=== PATIENT | female | born 1980 | race Caucasian/White ===

== ENCOUNTER 2022-11-03 15:00 | Emergency (ER) | payer MEDICAID, SELFPAY ==
[2022-11-03 15:01] VITALS: BP 146/85; PULSE 118; RESP 18; TEMP 36.8; O2SAT 96
--- NOTE | 2022-11-03 15:41 | ED_ITS ---
HPI - Back Pain/Injury General: Chief Complaint: Back Pain/Injury Stated Complaint: upper back pain Time Seen by Provider: 11/03/22 15:21 Source: patient Mode of arrival: ambulatory Limitations: no limitations History of Present Illness: Patient is a nice 42-year-old female presents to ED today with a complaint of pain to her left posterior chest/back that began a few days ago gradually. Patient states pain seems to be worse with movement and coughing. She states she chronically has a baseline smoker's cough and wonders if she pulled or strained something. She does not complain of any pain in her chest or worsening dyspnea apart from her chronic shortness of breath secondary to smoking. No hemoptysis. No recent surgery, prolonged periods of inactivity, hormonal therapy, or other risk factors for PE. MD elicited complaint: back pain Onset (ago): day(s) Timing: constant Severity: moderate Similar Symptoms Previously: No Radiation: none Exacerbating factors: movement and other (coughing) Relieving factors: none Associated symptoms: Deny abdominal pain, chills, dysuria, fatigue, fever(s), hematuria, nausea, syncope or vomiting Work related injury: No Review of Systems Const: Denies: fever(s), chills, body aches, fatigue or malaise Card: Reports: dyspnea on exertion (chronic with her smoking-at baseline); Denies: chest pain, palpitations, irregular heart rhythm, edema, swelling of feet/ankles, lightheadedness, syncope, pre-syncope, orthopnea, leg pain with exertion or acrocyanosis Resp: Reports: dyspnea (chronic due to smoking-at baseline), non-productive cough and pain on inspiration; Denies: productive cough, wheezing, stridor, change in phlegm color, hemoptysis or chest congestion GI: Denies: abdominal pain, nausea, vomiting or diarrhea : Denies: flank pain, dysuria or hematuria Musc: Reports: back pain; Denies: neck pain, extremity pain or joint pain Skin/Breast: Denies: rash Neuro: Denies: headache(s), numbness in extremities, weakness in extremities, sensory changes or dizziness Physical Exam Const: COMMON NORMALS: no acute distress, average body habitus, patient oriented x3, no limitations, healthy appearing, alert and well nourished GENERAL APPEARANCE: cooperative ORIENTATION/CONSCIOUSNESS: Yes awake, Yes oriented to person, Yes oriented to place and Yes oriented to time HENMT: COMMON NORMALS: normocephalic and atraumatic HEAD & SCALP: normal to inspection, normocephalic and atraumatic Chest: COMMONS NORMALS: normal inspection of the chest and normal palpation of entire chest wall Resp: COMMON NORMALS: normal respiratory effort and clear to auscultation bilaterally AUSCULTATION: clear to auscultation bilaterally Cardio: COMMON NORMALS: regular rate and regular rhythm RATE: regular rate RHYTHM: regular rhythm GI: COMMON NORMALS: Normal to inspection, nondistended, normoactive bowel sounds present, Soft to palpation, non-tender and no masses PALPATION: Yes Soft to palpation : COMMON NORMALS: Yes no CVA tenderness BLADDER/KIDNEY EXAM: Yes no CVA tenderness Back/Pelvis: COMMON NORMALS: no CVA tenderness, thoracic and lumbar spine normal to inspection, no thoracic nor lumbar tenderness and thoraco-lumbar ROM normal THORACIC SPINE/UPPER BACK: No thoracic spinal tenderness, Yes paraspinal muscle tenderness and No paraspinal muscle spasm LUMBAR SPINE/LOWER BACK: No lumbar spinal tenderness PELVIS: Yes buttocks normal SACROILIAC JOINTS: Yes SI joints normal SACRUM: no tenderness COCCYX: no tenderness BACK IMAGE (FEMALE): 1. TTP; palpation directly reproduces patient's pain Extremity: COMMON NORMALS: normal to inspection and full ROM GENERAL: Yes normal exam except as noted Neuro: JOY COMA SCALE: document GCS findings [place] coma scale eye op ening: Spontaneous Joy coma scale verbal response: Orientated [place] coma scale motor response: Obey commands Joy coma scale total score: 15 COMMON NORMALS: patient oriented x3, moves all extremities, no focal motor deficits and no sensory deficits noted SENSORIUM/ORIENTATION: Yes alert, Yes oriented to person, Yes oriented to place and Yes oriented to time Skin: COMMON NORMALS: no rashes or lesions noted GENERAL SKIN EXAM: no rashes or lesions noted Course Vital Signs: Vital signs: Vital Signs Temperature 98.3 F 11/03/22 15:01 Pulse Rate 86 11/03/22 15:55 Respiratory Rate 16 11/03/22 15:55 Blood Pressure 113/75 11/03/22 15:55 Pulse Oximetry 96 11/03/22 15:55 Oxygen Delivery Me thod 11/03/22 15:55 MDM - Back Pain/Injury Medical Decision Making Back pain is easily reproducible with palpation and movement. I feel patient's pain most likely is musculoskeletal. She does not have any urinary complaints to make me think this could be a pyelonephritis. Her vital signs are stable. CXR is normal. This time I would recommend NSAIDs and muscle relaxers as well as heat. Recommend follow-up with her PCP in 1 to 2 weeks for reevaluation if symptoms do not improve. Return to ED precautions given. Labs Radiology Impressions Chest X-Ray 11/03/22 15:45 IMPRESSION: No acute findings. Discharge Plan Discharge Patient Disposition: Home Clinical Impression: Strain of thoracic back region Condition: Stable Prescriptions: New cyclobenzaprine 10 mg tablet 10 mg PO TID Qty: 14 0RF diclofenac sodium 50 mg tablet,delayed release (DR/EC) 50 mg PO Q12H PRN (Reason: pain) Qty: 20 0RF Discharge Orders: Discharge ED (Routine); Ordered 11/03/22 Ordered By: Jessica Hernandez Referrals: Pilo Goff MD [Primary Care Provider] - Coding Level of Care Code ED Cyber Security Manager for Chg Fwd Exam Comprehensive
--- NOTE | 2022-11-03 15:45 | XRR_ITS ---
PROCEDURE INFORMATION: Exam: XR Chest Exam date and time: 11/03/2022 4:14 PM Age: 42 years old Clinical indication: Angina pectoris and left-sided; Patient HX: Mid back pain on the left side; Additional info: L back/chest pain TECHNIQUE: Imaging protocol: Radiologic exam of the chest. Views: 1 view. COMPARISON: No relevant prior studies available. FINDINGS: Lungs: Unremarkable. No consolidation. Pleural spaces: Unremarkable. No pleural effusion. No pneumothorax. Heart/Mediastinum: Unremarkable. No cardiomegaly. Bones/joints: Unremarkable. XR/XR chest 1V portable [id number] IMPRESSION: No acute findings.
[2022-11-03 15:55] VITALS: BP 113/75; PULSE 86; RESP 16; O2SAT 96
== END 2022-11-03 16:38 | disposition home or self-care (01) ==
PROVIDERS: Emergency Provider Physician Assistant; PCP Family Medicine
DX: S29.012A Strain of muscle and tendon of back wall of thorax, initial encounter (principal); X58.XXXA Exposure to other specified factors, initial encounter
CPT/HCPCS: 71045; 99283

== ENCOUNTER 2023-01-01 21:54 | Emergency (ER) | payer MEDICAID, SELFPAY ==
--- NOTE | 2023-01-01 21:55 | XRR_ITS ---
PROCEDURE INFORMATION: Exam: XR Chest Exam date and time: 01/01/2023 10:10 PM Age: 42 years old Clinical indication: Cough and shortness of breath; Additional info: SOB TECHNIQUE: Imaging protocol: Radiologic exam of the chest. Views: 1 view. COMPARISON: CR XR chest 1V portable [id number] 11/03/2022 4:14 PM FINDINGS: Lungs: Unremarkable. No consolidation. Pleural spaces: Unremarkable. No pleural effusion. No pneumothorax. Heart/Mediastinum: Unremarkable. No cardiomegaly. Bones/joints: Unremarkable. XR/XR chest 1V portable [id number] IMPRESSION: No acute findings.
[2023-01-01 22:11] VITALS: BP 152/98; PULSE 104; RESP 22; TEMP 36.6; O2SAT 97; BMI 24.7
--- NOTE | 2023-01-01 22:22 | ED_ITS ---
HPI - COVID General: Chief Complaint: COVID symptoms Stated Complaint: covid positive/symptomatic Time Seen by Provider: 01/01/23 22:19 Source: patient Mode of arrival: ambulatory Limitations: no limitations History of Present Illness: 42-year-old female states that she was diagnosed with COVID last Thursday states that since then she had cough congestion all the body aches she states she did finish Paxil but today states she still having cough along with just feeling ill she is in no distress here pulse ox 97% she denies any chest pains denies any vomiting or diarrhea. She denies any worsening improving factors. COVID 19 common symptoms: positive chills, non-productive cough and body aches; negative headache(s), throat pain, nausea, vomiting or diarrhea COVID 19 other sytmptoms: negative chest pain COVID Results: No Data to Display Review of Systems Const: Reports: chills and body aches Eyes: Denies: blurry vision or eye discomfort ENMT: Denies: throat pain or dental pain Card: Denies: chest pain Resp: Reports: non-productive cough GI: Denies: abdominal pain, nausea, vomiting or diarrhea : Denies: dysuria Musc: Denies: neck pain or back pain Skin/Breast: Denies: rash Neuro: Denies: headache(s) Psych: Denies: depression Jose/Lymph: Denies: easy bruising All/Imm: Denies: urticaria PFSH ED PFSH: Medical History No pertinent past medical history Social History (Updated 01/01/23 @ 22:22 by Ricky Zuluaga MD) Smoking and tobacco status: current every day smoker Physical Exam Const: COMMON NORMALS: no acute distress, patient oriented x3 and healthy appearing HENMT: COMMON NORMALS: normocephalic and atraumatic HEAD & SCALP: normocephalic and atraumatic Eye: COMMON NORMALS: Equal, round and reactive pupils present and EOMs intact bilaterally PUPIL: Yes Equal, round and reactive pupils present Neck/C-Spine: COMMON NORMALS: full ROM and supple Chest: COMMONS NORMALS: normal inspection of the chest and normal palpation of entire chest wall Resp: COMMON NORMALS: normal respiratory effort, No retractions, No use of accessory muscles and clear to auscultation bilaterally AUSCULTATION: clear to auscultation bilaterally Cardio: COMMON NORMALS: regular rate, regular rhythm and No murmurs present (Cardio) RATE: regular rate RHYTHM: regular rhythm GI: COMMON NORMALS: Normal to inspection, nondistended, normoactive bowel sounds present, Soft to palpation, non-tender and no masses PALPATION: Yes Soft to palpation Extremity: COMMON NORMALS: normal to inspection and full ROM Neuro: COMMON NORMALS: patient oriented x3, moves all extremities and no focal motor deficits Psych: COMMON NORMALS: mental status grossly normal, Normal thought process present and cooperative THOUGHT PROCESS: Normal thought process present Skin: COMMON NORMALS: no rashes or lesions noted and no wounds GENERAL SKIN EXAM: no rashes or lesions noted Course Vital Signs: Vital signs: Vital Signs Temperature 97.9 F 01/01/23 22:11 Pulse Rate 104 H 01/01/23 22:11 Respiratory Rate 22 H 01/01/23 22:11 Blood Pressure 152/98 01/01/23 22:11 Pulse Oximetry 97 01/01/23 22:11 Oxygen Delivery Me thod 01/01/23 22:11 [facility] - COVID Medical Decision Making Patient presents here with COVID she has had some cough body aches she is well- appearing here in no distress pulse ox is normal she has no signs of a pulmonary embolism she did she give her Decadron along with albuterol she is stable for discharge she is to follow-up with PCP and return if worsening. Lab Data No Data to Display Discharge Plan Discharge Patient Disposition: Home Clinical Impression: COVID-19 Prescriptions: New albuterol sulfate 90 mcg/actuation HFA aerosol inhaler 2 inh INHALATION Q6H PRN (Reason: shortness of breath or wheezing) Qty: 8 0RF No Action cyclobenzaprine 10 mg tablet 10 mg PO TID Qty: 14 0RF diclofenac sodium 50 mg tablet,delayed release (DR/EC) 50 mg PO Q12H PRN (Reason: pain) Qty: 20 0RF Discharge Orders: Discharge ED (Routine); Ordered 01/01/23 Ordered By: Ricky Zuluaga Referrals: Pilo Goff MD [Primary Care Provider] - 1-3 days Discharge Diet: Advance as tolerated Discharge Activity: Resume usual activity Patient Instructions: COVID-19 (Coronavirus Disease 2019) (ED) Stand Alone Forms: Work/School Release Coding Level of Care Code ED Oxygen Equipment Aide for Kerwin Gray
[2023-01-01] MEDS: albuterol 8 gm MDI 2 PUFF INHALATION (22:50)
[2023-01-01 22:52] VITALS: PULSE 104; RESP 21; O2SAT 99
[2023-01-01 23:05] VITALS: O2SAT 97
[2023-01-01] MEDS: dexamethasone 10 mg/mL INJ IM (23:05)
[2023-01-01 23:06] VITALS: PULSE 89; RESP 20; O2SAT 98
== END 2023-01-01 23:07 | disposition home or self-care (01) ==
PROVIDERS: Emergency Provider Emergency Medicine; PCP Family Medicine
DX: U07.1 COVID-19 (principal); F17.210 Nicotine dependence, cigarettes, uncomplicated
CPT/HCPCS: 71045; 94640; 96372; 99283; J1100; J3535

== ENCOUNTER 2023-09-24 08:29 | Emergency (ER) | payer MEDICAID, SELFPAY ==
[2023-09-24 08:41] VITALS: BP 153/108; PULSE 105; RESP 15; TEMP 36.6; O2SAT 96; BMI 27.4
--- NOTE | 2023-09-24 09:21 | ED_ITS ---
HPI - Eye Problem General: Chief complaint: Eye Problems Stated complaint: eye injury Time Seen by Provider: 09/24/23 08:30 Source: patient Mode of arrival: ambulatory History of Present Illness: 43-year-old female presents emergency ro om accidentally was hit in the right eye. She has some blood in the sclera also has swelling medially where she was struck she does not have any vision changes. She has developed some photophobia unsure of her last tetanus. chief complaint: eye pain and eye injury Onset (ago): minute(s) Location: right eye Eye Symptoms: redness, pain and photophobia Place: home Mechanism: direct trauma Associated symptoms: Denies cough, numbness, rhinorrhea, short of breath or weakness PFSH ED PFSH: Medical History No pertinent past medical history Social History Smoking and tobacco/nicotine status: current every day tobacco/nicotine user Female Reproductive History: Date of last menstrual period: 09/18/23 Physical Exam Narrative: EXAM NARRATIVE: Exam of the right eye there is subjectively hemorrhage. No hyphema. There appears to be a laceration of the sclera and medial portion of the right eye there is no drainage or active bleeding from this. Pupils equal and reactive. Patient has moderate photophobia of the right eye. Snellen chart testing vision 20/50 in the right eye 20/25 in the left eye Course Vital Signs: Vital signs: Vital Signs Temperature 97.8 F 09/24/23 08:41 Pulse Rate 105 H 09/24/23 08:41 Respiratory Rate 15 09/24/23 08:41 Blood Pressure 153/108 09/24/23 08:41 Pulse Oximetry 96 09/24/23 08:41 Oxygen Delivery Me thod Room Air 09/24/23 08:41 MDM - Eye Problem Medical Decision Making Update tetanus. Discharge to ophthalmology clinic. [facility] ophthalmology clinic is covering call today contacted them and they will see the patient in the office today at 11:00. Medical Records I reviewed the patient's medical records. Lab Data I reviewed the patient's lab results. No radiology studies performed this visit Discharge Plan Discharge Patient Disposition: Home Clinical Impression: Subconjunctival hemorrhage, Scleral laceration of right eye Condition: Stable Prescriptions: No Action prednisone 20 mg tablet 60 mg PO DAILY 5 Days Qty: 15 0RF diphenhydramine HCl [Benadryl Allergy] 25 mg tablet 50 mg PO TID PRN (Reason: allergy symptoms) Qty: 60 0RF famotidine [Pepcid] 40 mg tablet 40 mg PO BID 5 Days Qty: 10 0RF albuterol sulfate 90 mcg/actuation HFA aerosol inhaler 2 inh INHALATION Q6H PRN (Reason: shortness of breath or wheezing) Qty: 8 0RF Discharge Orders: Discharge ED (Routine); Ordered 09/24/23 Ordered By: Osito Dickerson Referrals: Marquise Somers [Physician] - Renan Somers MD [Physician] - Discharge Diet: Usual diet Discharge Activity: Limit activity as instructed Patient Instructions: Subconjunctival Hemorrhage, Opioid Safety, Pain Management Activity Restrictions/Additional Instructions: Thank you for choosing [facility] for your healthcare needs today. Please realize this is an emergency room and that we are providing you with a medical screening exam and this may not be complete and all inclusive of all the testing and or work up that you may need to determine your ailment or severity of your illness. It is very important that you follow up as instructed or that you return to the Emergency Department should you have concerns or if your condition changes or worsens in any way. After the trauma to your right eye you were noted on exam to have a subconjunctival hemorrhage as well as what looks like a mild scleral laceration. This should be further evaluated by ophthalmology. [facility] will see you immediately after you leave the emergency room. The phone number and address for their clinic is provided in your discharge paperwork. Stand Alone Forms: Work/School Release Coding Level of Care Code ED Flexographic Printing Press Operator for Kerwin Gray
[2023-09-24] MEDS: tetanus-dipt-pertussis 0.5 mL SDV IM (09:30)
[2023-09-24 09:38] VITALS: PULSE 99; RESP 16; O2SAT 96
[2023-09-24 09:39] VITALS: PULSE 99; RESP 16; O2SAT 99
== END 2023-09-24 09:42 | disposition home or self-care (01) ==
PROVIDERS: Emergency Provider Family Medicine; PCP Family Medicine
DX: H11.31 Conjunctival hemorrhage, right eye (principal); S05.31XA Ocular laceration without prolapse or loss of intraocular tissue, right eye, initial encounter; Z72.0 Tobacco use; W50.0XXA Accidental hit or strike by another person, initial encounter; Z23 Encounter for immunization
CPT/HCPCS: 90471; 90715; 99283

== ENCOUNTER 2023-12-18 14:58 | Emergency (ER) | payer MEDICAID, SELFPAY ==
[2023-12-18 15:02] VITALS: BP 162/112; PULSE 102; RESP 20; TEMP 36.9; O2SAT 96
--- NOTE | 2023-12-18 15:40 | XRR_ITS ---
PROCEDURE INFORMATION: Exam: XR Lumbosacral Spine Exam date and time: 12/18/2023 3:52 PM Age: 43 years old Clinical indication: Low back pain; Additional info: Injury/pain TECHNIQUE: Imaging protocol: Radiologic exam of the lumbosacral spine. Views: 2 or 3 views. COMPARISON: No relevant prior studies available. FINDINGS: Bones/joints: No fracture or other acute abnormality. There is a mild levocurvature. Sagittal alignment is normal. There is mild lumbosacral disc space narrowing. Remaining levels are normal. Probable mild posterior metallic fusion anomaly at L5. Posterior elements are otherwise unremarkable. Soft tissues: Unremarkable. XR/XR lumbar spine 2-3V* [id number] IMPRESSION: Nonacute findings.
--- NOTE | 2023-12-18 15:42 | W.ED.BACK ---
HPI - Back Pain/Injury General: Chief Complaint: Back Pain/Injury Stated Complaint: lower back pain Time Seen by Provider: 12/18/23 15:11 History of Present Illness: 43-year-old female presents emergency department chief complaint of an hour ago she was trying to move a piece of furniture with her father going up the stairs in which she immediately injured her back when she felt a pop in her lower back patient does not endorse any prior history any trauma or injury noted to the back. Patient reports no numbness or tingling distally does report moderate spasm and pain with certain movements and twisting of the back patient does not endorse any prior history of surgery noted to the back she does not endorse any other associated issues. Associated symptoms: Deny abdominal pain, chills, fatigue, fever(s), nausea or vomiting Review of Systems General: Reports: 10 or more systems reviewed and unremarkable except in HPI and below Const: Denies: fever(s), chills, fatigue or malaise Eyes: Denies: change in vision or blurry vision Card: Denies: chest pain or palpitations Resp: Denies: dyspnea or productive cough GI: Denies: abdominal pain, nausea or vomiting : Denies: flank pain Musc: Reports: back pain, joint stiffness, limited range of motion and muscle cramps; Denies: extremity pain, extremity swelling or joint swelling Skin/Breast: Denies: rash or pruritus Neuro: Denies: headache(s) Psych: Denies: anxiety or depression Jose/Lymph: Denies: easy bleeding All/Imm: Denies: urticaria, throat swelling or facial swelling PFS ED PFSH: Medical History No pertinent past medical history Social History Smoking and tobacco/nicotine status: current every day tobacco/nicotine user Physical Exam Const: COMMON NORMALS: patient oriented x3 and healthy appearing; apparent distress (Patient appears in moderate distress due to pain and spasm noted in her iveth) HENMT: COMMON NORMALS: normocephalic and atraumatic HEAD & SCALP: normocephalic and atraumatic Eye: COMMON NORMALS: Equal, round and reactive pupils present and EOMs intact bilaterally PUPIL: Yes Equal, round and reactive pupils present Neck/C-Spine: COMMON NORMALS: full ROM, supple and no JVD Lymph: LYMPHATIC: no lymphadenopathy noted Chest: COMMONS NORMALS: normal inspection of the chest and normal palpation of entire chest wall Resp: COMMON NORMALS: normal respiratory effort, No retractions and clear to auscultation bilaterally EFFORT & INSPECTION: Yes able to speak in complete sentences and Yes symmetric chest movement AUSCULTATION: clear to auscultation bilaterally Cardio: COMMON NORMALS: no JVD, regular rate and regular rhythm RATE: regular rate RHYTHM: regular rhythm GI: COMMON NORMALS: Normal to inspection, nondistended, normoactive bowel sounds present, Soft to palpation and non-tender INSPECTION: Yes normal to inspection PALPATION: Yes Soft to palpation : COMMON NORMALS: No no CVA tenderness BLADDER/KIDNEY EXAM: No no CVA tenderness Back/Pelvis: COMMON NORMALS: negative for no CVA tenderness, negative for thoracic and lumbar spine normal to inspection, negative for no thoracic nor lumbar tenderness (Moderate pain to palpation over the thoracolumbar spine) and negative for thoraco-lumbar ROM normal (Moderate pain noted L3-L4 with bilateral paravertebral spasm) Extremity: COMMON NORMALS: normal to inspection and full ROM Neuro: COMMON NORMALS: patient oriented x3, CN's II-XII intact bilaterally, moves all extremities and no focal motor deficits Psych: COMMON NORMALS: mental status grossly normal, Normal thought process present, cooperative and normal affect THOUGHT PROCESS: Normal thought process present Skin: COMMON NORMALS: no rashes or lesions noted GENERAL SKIN EXAM: no rashes or lesions noted Course Vital Signs: Vital signs: Vital Signs Temperature 98.4 F 12/18/23 15:02 Pulse Rate 93 12/18/23 16:56 Respiratory Rate 16 12/18/23 16:56 Blood Pressure 162/112 12/18/23 15:02 Pulse Oximetry 98 12/18/23 16:56 Oxygen Delivery Me thod Room Air 12/18/23 16:56 MDM - Back Pain/Injury Medical Decision Making On exam patient appears have a lumbar strain patient has no symptoms suggestive of cauda equina no bowel or bladder incontinence issues or foot drop or muscular weakness in her legs. Patient appears most likely this is more muscular versus bony involvement. Will be provided the patient's medications for her symptoms x-ray imaging of the lumbar back will be obtained we will continue to follow. Labs Radiology Impressions Lumbar Spine X-Ray 12/18/23 15:40 IMPRESSION: Nonacute findings. All radiology interpretation(s) finalized by discharge Discharge Plan Discharge Clinical Impression: Strain of lumbar region Qualifiers: Encounter type: initial encounter Qualified Code(s): S39.012A - Strain of muscle, fascia and tendon of lower back, initial encounter Condition: Stable Prescriptions: New methocarbamol 750 mg tablet 750 mg PO TID PRN (Reason: spasms) Qty: 20 0RF prednisone 10 mg tablets,dose pack 10 mg PO DIRECTED Qty: 21 0RF Rx Instructions: see taper instructions ketorolac 10 mg tablet 10 mg PO Q8H 4 Days Qty: 12 0RF No Action albuterol sulfate 90 mcg/actuation HFA aerosol inhaler 2 inh INHALATION Q6H PRN (Reason: shortness of breath or wheezing) Qty: 8 0RF Referrals: Pilo Goff MD [Primary Care Provider] - 1-3 days Discharge Activity: Increase activity as tolerated Patient Instructions: Low Back Strain (ED), Lower Back Exercises (ED) Activity Restrictions/Additional Instructions: No bending or stooping over the next 2 to 3 days to reduce likelihood of additional injury noted to your lower back please take medications as prescribed you can use covered ice packs to the affected area to reduce inflammation and her pain please further follow-up primary care in 2 to 3 days in which to return the interim if any of your symptoms persist or worse. Coding Level of Care Code ED Electric Arc Furnace Operator for Kerwin Gray
[2023-12-18] MEDS: methocarbamol 750 mg Tablet PO (15:46)
[2023-12-18] MEDS: ketorolac 60 mg/2 mL INJ IM (15:46)
[2023-12-18] MEDS: methylPREDNISolone (DEPO) 80 MG/ML INJ 1 mL IM (15:47)
[2023-12-18 16:56] VITALS: PULSE 93; RESP 16; O2SAT 98
--- NOTE | 2023-12-18 17:18 | PC.NURSE ---
called xray to inquire about xray report
--- NOTE | 2023-12-18 18:38 | W.ED.BACK ---
HPI - Back Pain/Injury General: Chief Complaint: Back Pain/Injury Stated Complaint: lower back pain Time Seen by Provider: 12/18/23 15:11 History of Present Illness: This is a duplicate chart please delete PFSH ED PFSH: Medical History No pertinent past medical history Social History Smoking and tobacco/nicotine status: current every day tobacco/nicotine user Course Vital Signs: Vital signs: Vital Signs Temperature 98.4 F 12/18/23 15:02 Pulse Rate 93 12/18/23 16:56 Respiratory Rate 16 12/18/23 16:56 Blood Pressure 162/112 12/18/23 15:02 Pulse Oximetry 98 12/18/23 16:56 Oxygen Delivery Me thod Room Air 12/18/23 16:56 MDM - Back Pain/Injury Medical Decision Making This is a duplicate chart please delete Labs Radiology Impressions Lumbar Spine X-Ray 12/18/23 15:40 IMPRESSION: Nonacute findings. All radiology interpretation(s) finalized by discharge Discharge Plan Discharge Patient Disposition: Home Clinical Impression: Strain of lumbar region Qualifiers: Encounter type: initial encounter Qualified Code(s): S39.012A - Strain of muscle, fascia and tendon of lower back, initial encounter Condition: Stable Prescriptions: New ketorolac 10 mg tablet 10 mg PO Q8H 4 Days Qty: 12 0RF methocarbamol 750 mg tablet 750 mg PO TID PRN (Reason: spasms) Qty: 20 0RF prednisone 10 mg tablets,dose pack 10 mg PO DIRECTED Qty: 21 0RF Rx Instructions: see taper instructions No Action albuterol sulfate 90 mcg/actuation HFA aerosol inhaler 2 inh INHALATION Q6H PRN (Reason: shortness of breath or wheezing) Qty: 8 0RF Discharge Orders: Discharge ED (Routine); Ordered 12/18/23 Ordered By: Antonio Arroyo Referrals: Pilo Goff MD [Primary Care Provider] - 1-3 days Discharge Activity: Increase activity as tolerated Patient Instructions: Low Back Strain (ED), Lower Back Exercises (ED), Opioid Safety, Pain Management Activity Restrictions/Additional Instructions: No bending or stooping over the next 2 to 3 days to reduce likelihood of additional injury noted to your lower back please take medications as prescribed you can use covered ice packs to the affected area to reduce inflammation and her pain please further follow-up primary care in 2 to 3 days in which to return the interim if any of your symptoms persist or worse. 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
== END 2023-12-18 18:48 | disposition home or self-care (01) ==
PROVIDERS: Emergency Provider Emergency Medicine; PCP Family Medicine
DX: S39.012A Strain of muscle, fascia and tendon of lower back, initial encounter (principal); Z72.0 Tobacco use; X50.0XXA Overexertion from strenuous movement or load, initial encounter
CPT/HCPCS: 72100; 96372; 99284; J1040; J1885

== ENCOUNTER 2023-12-19 12:15 | Emergency (ER) | payer MEDICAID, SELFPAY ==
[2023-12-19 12:25] VITALS: BP 180/115; PULSE 95; RESP 17; TEMP 36.8; O2SAT 98; BMI 29.2
--- NOTE | 2023-12-19 16:30 | W.ED.BACK ---
Documented by User: DUSTY Muñoz 12/19/23 17:31 HPI - Back Pain/Injury General: Chief Complaint: Back Pain/Injury Stated Complaint: BACK PAIN Time Seen by Provider: 12/19/23 16:04 Source: patient Mode of arrival: wheelchair Limitations: no limitations History of Present Illness: Patient is a 43-year-old female who presents to the emergency department complaining of lumbar back pain onset yesterday. Patient initially injured her back while lifting something and walking upstairs, and was initially seen in the ER yesterday. 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 She presents today saying her pain has gotten worse, and she is now having shooting pains to her left leg. Otherwise, she denies any bowel or bladder incontinence, saddle anesthesia, fevers, or other concerning symptoms. Associated symptoms: Reports difficulty walking; Deny abdominal pain, chills, dysuria, fatigue, fever(s), nausea or vomiting Review of Systems General: Reports: 10 or more systems reviewed and unremarkable except in HPI and below Const: Denies: fever(s), chills or fatigue Eyes: Denies: change in vision ENMT: Denies: throat pain, ear or mastoid pain or nasal discharge Card: Denies: chest pain, palpitations, swelling of feet/ankles or lightheadedness Resp: Denies: dyspnea, productive cough or wheezing GI: Denies: abdominal pain, nausea, vomiting, diarrhea or constipation : Denies: flank pain, difficulty voiding, dysuria or urinary frequency Musc: Reports: back pain and extremity pain; Denies: neck pain or joint pain Skin/Breast: Denies: rash Neuro: Reports: difficulty walking and other (No saddle anesthesia or bowel/bladder incontinence); Denies: headache(s), numbness in extremities or weakness in extremities PFS ED PFSH: Medical History No pertinent past medical history Social History Smoking and tobacco/nicotine status: current every day tobacco/nicotine user Physical Exam Const: COMMON NORMALS: no acute distress, patient oriented x3 and no limitations GENERAL APPEARANCE: cooperative, comfortable, well developed and anxious ORIENTATION/CONSCIOUSNESS: Yes awake, Yes oriented to person, Yes oriented to place and Yes oriented to time HENMT: COMMON NORMALS: normocephalic, atraumatic and hearing grossly normal bilaterally HEAD & SCALP: normocephalic and atraumatic Eye: COMMON NORMALS: Equal, round and reactive pupils present, EOMs intact bilaterally and conjunctivae normal CONJUNCTIVA: Yes conjunctivae normal PUPIL: Yes Equal, round and reactive pupils present Neck/C-Spine: COMMON NORMALS: full ROM, supple and no JVD Resp: COMMON NORMALS: normal respiratory effort, No retractions, No use of accessory muscles and clear to auscultation bilaterally AUSCULTATION: clear to auscultation bilaterally Cardio: COMMON NORMALS: no JVD, regular rate, regular rhythm, No clicks present (Cardio), No murmurs present (Cardio) and No rub (Cardio) RATE: regular rate RHYTHM: regular rhythm Back/Pelvis: COMMON NORMALS: thoracic and lumbar spine normal to inspection and no thoracic nor lumbar tenderness LUMBAR SPINE/LOWER BACK: Yes ROM limited, Yes pain with ROM and Yes paraspinal muscle tenderness Lumbar paraspinal muscle tenderness: left OTHER: No bruising or deformities noted Extremity: COMMON NORMALS: normal to inspection, full ROM, capillary refill normal and no clubbing, cyanosis or edema NARRATIVE EXTREMITY EXAM: DTRs intact bilaterally. Neuro: COMMON NORMALS: patient oriented x3, moves all extremities, no focal motor deficits and no sensory deficits noted SENSORIUM/ORIENTATION: Yes oriented to person, Yes oriented to place and Yes oriented to time Psych: COMMON NORMALS: mental status grossly normal and Normal thought process present THOUGHT PROCESS: Normal thought process present Skin: COMMON NORMALS: no rashes or lesions noted GENERAL SKIN EXAM: no rashes or lesions noted Course Vital Signs: Vital signs: Vital Signs Temperature 98.2 F 12/19/23 12:25 Pulse Rate 95 12/19/23 12:25 Respiratory Rate 17 12/19/23 12:25 Blood Pressure 180/115 12/19/23 12:25 Pulse Oximetry 98 12/19/23 12:25 Oxygen Delivery Me thod Room Air 12/19/23 12:25 MDM - Back Pain/Injury Medical Decision Making This patient was seen evaluated in the emergency department today for subsequent encounter of left lower back pain onset yesterday. Patient's note from yesterday was reviewed including her negative lumbar x-ray. Patient was unable to fill her prescription medications due to lack of transportation. She states the pain has gotten worse, but denies any new neurological changes. Vitals normal. Examination positive for paralumbar muscular tenderness to palpation, and patient was noncompliant with participating in range of motion exercises due to her pain. She was given IM Norflex, Toradol, and Decadron and upon recheck states that she feels much better and was able to stand under her own power. Still believe the patient is dealing with a lumbar back strain as diagnosed yesterday, and she did not report any new red flag symptoms that needed further imaging or testing at this point. Explained to her reason for following up with primary care provider so that they could perform any necessary imaging if her symptoms did not get better. She agrees with this plan. She will be given a work note to return on Thursday. Patient discharged home. Medical Records I reviewed the patient's medical records. No radiology studies performed this visit Discharge Plan Discharge Patient Disposition: Home Clinical Impression: Strain of lumbar region Qualifiers: Encounter type: subsequent encounter Qualified Code(s): S39.012D - Strain of muscle, fascia and tendon of lower back, subsequent encounter Condition: Stable Prescriptions: No Action albuterol sulfate 90 mcg/actuation HFA aerosol inhaler 2 inh INHALATION Q6H PRN (Reason: shortness of breath or wheezing) Qty: 8 0RF ketorolac 10 mg tablet 10 mg PO Q8H 4 Days Qty: 12 0RF methocarbamol 750 mg tablet 750 mg PO TID PRN (Reason: spasms) Qty: 20 0RF prednisone 10 mg tablets,dose pack 10 mg PO DIRECTED Qty: 21 0RF Rx Instructions: see taper instructions Discharge Orders: Discharge ED (Routine); Ordered 12/19/23 Ordered By: Noe Patricio Referrals: Pilo Goff MD [Primary Care Provider] - Discharge Diet: Usual diet Discharge Activity: Increase activity as tolerated Patient Instructions: Low Back Strain (ED) Activity Restrictions/Additional Instructions: Take your medications as prescribed from yesterday's visit. Ice/heat as needed for added relief. Gentle range of motion activities as tolerated. Follow-up with your primary care provider next week to discuss ER visit and any further testing. Return with any new or worsening symptoms. 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 [employer] Fwd Documented by User: Osito Dickerson DO 12/21/23 06:33 HPI - Back Pain/Injury General: Chief Complaint: Back Pain/Injury Stated Complaint: BACK PAIN Time Seen by Provider: 12/19/23 16:04 PFS ED PFSH: Medical History No pertinent past medical history Social History Smoking and tobacco/nicotine status: current every day tobacco/nicotine user Course Vital Signs: Vital signs: Vital Signs Temperature 98.2 F 12/19/23 12:25 Pulse Rate 95 12/19/23 12:25 Respiratory Rate 17 12/19/23 12:25 Blood Pressure 180/115 12/19/23 12:25 Pulse Oximetry 98 12/19/23 12:25 Oxygen Delivery Me thod Room Air 12/19/23 12:25 MDM - Back Pain/Injury Medical Decision Making This patient was seen evaluated in the emergency department today for subsequent encounter of left lower back pain onset yesterday. Patient's note from yesterday was reviewed including her negative lumbar x-ray. Patient was unable to fill her prescription medications due to lack of transportation. She states the pain has gotten worse, but denies any new neurological changes. Vitals normal. Examination positive for paralumbar muscular tenderness to palpation, and patient was noncompliant with participating in range of motion exercises due to her pain. She was given IM Norflex, Toradol, and Decadron and upon recheck states that she feels much better and was able to stand under her own power. Still believe the patient is dealing with a lumbar back strain as diagnosed yesterday, and she did not report any new red flag symptoms that needed further imaging or testing at this point. Explained to her reason for following up with primary care provider so that they could perform any necessary imaging if her symptoms did not get better. She agrees with this plan. She will be given a work note to return on Thursday. Patient discharged home. Chart reviewed and patient discussed with midlevel. Agree with assessment and plan. Discharge Plan Discharge Patient Disposition: Home Clinical Impression: Strain of lumbar region Qualifiers: Encounter type: subsequent encounter Qualified Code(s): S39.012D - Strain of muscle, fascia and tendon of lower back, subsequent encounter Condition: Stable Prescriptions: No Action albuterol sulfate 90 mcg/actuation HFA aerosol inhaler 2 inh INHALATION Q6H PRN (Reason: shortness of breath or wheezing) Qty: 8 0RF ketorolac 10 mg tablet 10 mg PO Q8H 4 Days Qty: 12 0RF methocarbamol 750 mg tablet 750 mg PO TID PRN (Reason: spasms) Qty: 20 0RF prednisone 10 mg tablets,dose pack 10 mg PO DIRECTED Qty: 21 0RF Rx Instructions: see taper instructions Discharge Orders: Discharge ED (Routine); Ordered 12/19/23 Ordered By: Noe Patricio Referrals: Pilo Goff MD [Primary Care Provider] - Discharge Diet: Usual diet Discharge Activity: Increase activity as tolerated Patient Instructions: Low Back Strain (ED) Activity Restrictions/Additional Instructions: Take your medications as prescribed from yesterday's visit. Ice/heat as needed for added relief. Gentle range of motion activities as tolerated. Follow-up with your primary care provider next week to discuss ER visit and any further testing. Return with any new or worsening symptoms. 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
[2023-12-19] MEDS: dexamethasone 10 mg/mL INJ 8 MG IM (17:07)
[2023-12-19] MEDS: ketorolac 60 mg/2 mL INJ IM (17:07)
[2023-12-19] MEDS: orphenadrine 30 mg/mL Inj 2 mL 60 MG IM (17:08)
== END 2023-12-19 17:58 | disposition home or self-care (01) ==
PROVIDERS: Emergency Provider Physician Assistant; PCP Family Medicine
DX: S39.012A Strain of muscle, fascia and tendon of lower back, initial encounter (principal); Z72.0 Tobacco use; X50.0XXA Overexertion from strenuous movement or load, initial encounter
CPT/HCPCS: 96372; 99284; J1100; J1885; J2360

== ENCOUNTER → 2024-09-22 16:34 | Outpatient (BNVA) | payer MEDICAID, SELFPAY | PROVIDERS: PCP Family Medicine; Visit Provider Registered Nurse Neonatal Intensive Care | DX: M25.474 Effusion, right foot (principal) | CPT/HCPCS: 73610 ==

== ENCOUNTER → 2024-11-11 18:48 | Outpatient (BNVA) | payer MEDICAID, SELFPAY | PROVIDERS: PCP Family Medicine | DX: R05.9 Cough, unspecified (principal) | CPT/HCPCS: 87400 ==

== ENCOUNTER 2025-01-12 17:28 | Emergency (ER) | payer MEDICAID, SELFPAY ==
--- NOTE | 2025-01-12 17:30 | XRR_ITS ---
PROCEDURE INFORMATION: Exam: XR Chest Exam date and time: 01/12/2025 5:51 PM Age: 44 years old Clinical indication: Pain; Chest pressure; Additional info: Cp TECHNIQUE: Imaging protocol: Radiologic exam of the chest. Views: 1 view. COMPARISON: CR XR chest 1V portable [id number] 01/01/2023 10:10 PM FINDINGS: Lungs: Unremarkable. No infiltrate or consolidation. Pulmonary vascularity within normal limits. Pleural spaces: Unremarkable. No pleural effusion. No pneumothorax. Heart/Mediastinum: Unremarkable. No cardiomegaly. Bones/joints: Visualized osseous structures show no acute abnormality. Other findings: No significant change with prior exam. XR/XR chest 1V portable [id number] IMPRESSION: No acute cardiopulmonary abnormality.
--- NOTE | 2025-01-12 17:30 | ECG_ITS ---
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 Measurements Intervals [place] Rate: 87 P: 70 ME: 142 QRS: 59 QRSD: 94 T: 69 QT: 373 QTc: 451 Interpretive Statements SINUS RHYTHM WITH SINUS ARRHYTHMIA POSSIBLE LEFT ATRIAL ENLARGEMENT [-0.1mV P-WAVE IN V1/V2] POSSIBLE RIGHT VENTRICULAR CONDUCTION DELAY [RSR (QR) IN V1/V2] SEPTAL MYOCARDIAL INFARCTION , OF INDETERMINATE AGE [40+ ms Q WAVE IN V1/V2] No previous ECG available for comparison Electronically Signed On 01-12-2025 22:18:00 CDT by Flower Lechuga M.D. [id number] [id number]
[2025-01-12 17:32] VITALS: BP 181/100; PULSE 94; RESP 18; TEMP 36.7; O2SAT 98; BMI 29.7
--- NOTE | 2025-01-12 17:56 | ED_ITS ---
HPI - Chest Pain 2 General: Chief Complaint: Chest Pain Stated Complaint: CP into back Time Seen by Provider: 01/12/25 17:44 Source: patient Mode of arrival: ambulatory Limitations: no limitations History of Present Illness: 44-year-old female states that she been having chest pains ongoing for about a week states has been a pressure pain in her chest seems to been worse with exertion had some mild dyspnea but states she has got dyspnea long-term from smoking. She denies any fever denies any nausea no history of heart disease. Associated symptoms: Reports dyspnea; Deny abdominal pain, fever(s), nausea or vomiting Related Data Previous Rx's ?Medication ?Instructions ?Recorded albuterol sulfate 90 mcg/actuation 2 inh inhalation Q6 H PRN shortness 04/22/23 aerosol inhaler of breath or wheezing #8 gra ms azithromycin 500 mg tablet 500 mg PO DAILY 5 days #5 t abs 11/11/24 (Zithromax) prednisone 20 mg tablet 60 mg (3 x 20 mg) PO DAILY 5 days 11/11/24 #15 tabs metoprolol succinate 25 mg 25 mg PO DAILY #30 tabs tablet,extended release 24 hr Allergies Allergy/AdvReac Type Severity Reaction Status Date / Time No Known Allergies Allergy Verified 11/11/24 18:42 Review of Systems 2 Const: Denies: fever(s), chills, body aches or change in appetite ENMT: Denies: throat pain or dental pain Card: Reports: chest pain Resp: Reports: dyspnea GI: Denies: abdominal pain, nausea, vomiting or diarrhea Musc: Denies: neck pain or back pain Skin/Breast: Denies: rash Neuro: Denies: headache(s) PFSH ED 2 PFSH: Medical History No pertinent past medical history Social History Smoking and tobacco/nicotine status: never used tobacco/nicotine Physical Exam 2 Const: COMMON NORMALS: patient oriented x3 HENMT: COMMON NORMALS: normocephalic and atraumatic HEAD & SCALP: n ormocephalic and atraumatic Eye: COMMON NORMALS: Equal, round and reactive pupils present and EOMs intact bilaterally PUPIL: Yes Equal, round and reactive pupils present Neck/C-Spine: COMMON NORMALS: full ROM and supple Chest: COMMONS NORMALS: normal inspection of the chest and normal palpation of entire chest wall Resp: COMMON NORMALS: normal respiratory effort, No retractions, No use of accessory muscles and clear to auscultation bilaterally AUSCULTATION: clear to auscultation bilaterally Cardio: COMMON NORMALS: regular rate, regular rhythm and No murmurs present (Cardio) RATE: regular rate RHYTHM: regular rhythm GI: COMMON NORMALS: Normal to inspection, nondistended, normoactive bowel sounds present, Soft to palpation, non-tender and no masses PALPATION: Yes Soft to palpation Extremity: COMMON NORMALS: normal to inspection and full ROM Neuro: COMMON NORMALS: patient oriented x3, moves all extremities and no focal motor deficits Psych: COMMON NORMALS: mental status grossly normal, Normal thought process present and cooperative THOUGHT PROCESS: Normal thought process present Skin: COMMON NORMALS: no rashes or lesions noted and no wounds GENERAL SKIN EXAM: no rashes or lesions noted Course 2 Vital Signs: Vital signs: Vital Signs Temperature 98.1 F 01/12/25 17:32 Pulse Rate 75 01/12/25 19:06 Respiratory Rate 17 01/12/25 19:06 Blood Pressure 153/97 01/12/25 19:06 Pulse Oximetry 99 01/12/25 19:06 Oxygen Delivery Me thod Room Air 01/12/25 19:06 MDM - Chest Pain Medical Decision Making Patient presents for chest pains atypical in nature has been going for a week her troponin here is negative she has no signs of ACS D-dimer is negative no signs of pulm embolism or aortic dissection she has been hypertensive here we will start her on metoprolol she is to follow-up with PCP in 3 to 5 days return if worsening. Medical Records I reviewed the patient's medical records. Lab Data I reviewed the patient's lab results. 01/12/25 18:05 01/12/25 18:05 Radiology Impressions Chest X-Ray 01/12/25 17:30 IMPRESSION: No acute cardiopulmonary abnormality. Laboratory Results WBC 8.42 10^3/uL (3.29-11.43) 01/12/25 18:05 RBC 4.66 10^6/uL (3.85-5.65) 01/12/25 18:05 Hgb 13.60 g/dL (11.27-16.99) 01/12/25 18:05 Hct 40.1 % (36-47) 01/12/25 18:05 MCV 86.1 fl (85-98) 01/12/25 18:05 MCH 29.2 pg (27-33) 01/12/25 18:05 MCHC 33.9 g/dL (30-55) 01/12/25 18:05 RDW 13.4 % (12.1-15.1) 01/12/25 18:05 Plt Count 277 10^3/cmm (157-399) 01/12/25 18:05 MPV 9.6 fL (7.4-10.4) 01/12/25 18:05 Neut % (Auto) 60.3 % 01/12/25 18:05 Lymph % (Auto) 29.2 % 01/12/25 18:05 [place] % (Auto) 9.4 % 01/12/25 18:05 Eos % (Auto) 0.5 % 01/12/25 18:05 Baso % (Auto) 0.4 % 01/12/25 18:05 Neut # (Auto) 5.08 10^3/uL (1.8-7.7) 01/12/25 18:05 Lymph # (Auto) 2.5 10^3/uL (0.8-4.8) 01/12/25 18:05 [place] # (Auto) 0.8 10^3/uL (0.2-0.9) 01/12/25 18:05 Eos # (Auto) 0.0 10^3/uL (0.0-0.8) 01/12/25 18:05 Baso # (Auto) 0.0 10^3/uL (0.0-0.1) 01/12/25 18:05 Nucleated RBC % (auto) 0 % 01/12/25 18:05 Nucleated RBCs # 0.0 /100WBC 01/12/25 18:05 PT 12.80 SECONDS (12.1-14.9) 01/12/25 18:05 INR 0.90 (0.8-1.2) 01/12/25 18:05 D-Dimer 0.28 ug/mLFEU (0-0.59) 01/12/25 18:05 Sodium 139 mmol/L (136-145) 01/12/25 18:05 Potassium 3.6 mmol/L (3.5-5.1) 01/12/25 18:05 Chloride 104 mmol/L (98-107) 01/12/25 18:05 Carbon Dioxide 20 mmol/L (22-29) L 01/12/25 18:05 Anion Gap 18.6 (5-19) 01/12/25 18:05 BUN 8 mg/dL (6-20) 01/12/25 18:05 Creatinine 0.4 mg/dL (0.5-0.9) L 01/12/25 18:05 GFR Calculation 174.2 mL/min (90-130) H 01/12/25 18:05 Glucose 86 mg/dL (65-115) 01/12/25 18:05 Calculated Osmolality 286 mOsm/kg (285-295) 01/12/25 18:05 Calcium 9.0 mg/dL (8.5-10.5) 01/12/25 18:05 Total Bilirubin 0.4 mg/dL (0.15-1.2) 01/12/25 18:05 AST 25 U/L (0-32) 01/12/25 18:05 ALT 17 U/L (0-33) 01/12/25 18:05 Alkaline Phosphatase 92 U/L (35-105) 01/12/25 18:05 Troponin T Baseline < 6 ng/L (0-10) 01/12/25 18:05 Troponin T 120 Minute 6.00 ng/L (0-10) 01/12/25 19:48 Delta Troponin T 0.79019 ABS# (0-10) 01/12/25 19:48 Total Protein 7.1 g/dL (6.6-8.7) 01/12/25 18:05 Albumin 4.4 g/dL (3.5-5.2) 01/12/25 18:05 Globulin 2.7 g/dL (1.3-4.6) 01/12/25 18:05 Lipase 13 U/L (13-60) 01/12/25 18:05 All radiology interpretation(s) finalized by discharge EKG Data EKG 1: I personally reviewed and interpreted this EKG as follows: EKG interpretation date: 01/12/25 EKG interpretation time: 17:39 Interpretation: nsr no st elevatin qrs [id number] Clincial Decision Support The following clinical decision support tools were used to aid in care of the patient HEART Score -> History: Slightly Suspicous, EKG: Normal, Age: Less than 45 yrs, Risk Factors: No Risk Factors Known, Troponin: Baseline Trop <16 ng/L. Resulting HEART Score: 0. Discharge Plan Discharge Patient Disposition: Home Clinical Impression: Chest pain, Hypertension Condition: Stable Prescriptions: New metoprolol succinate 25 mg tablet extended release 24 hr 25 mg PO DAILY Qty: 30 0RF No Action albuterol sulfate 90 mcg/actuation HFA aerosol inhaler 2 inh INHALATION Q6H PRN (Reason: shortness of breath or wheezing) Qty: 8 0RF prednisone 20 mg tablet 60 mg PO DAILY 5 Days Qty: 15 0RF azithromycin [Zithromax] 500 mg tablet 500 mg PO DAILY 5 Days Qty: 5 0RF Discharge Orders: Discharge ED (Routine); Ordered 01/12/25 Ordered By: Ricky Zuluaga Referrals: Pilo Goff MD [Primary Care Provider] - 4-7 days Discharge Diet: Advance as tolerated Discharge Activity: Resume usual activity Patient Instructions: Chest Pain (ED), Hypertension (ED) Print Language: Croatian Coding Level of Care Code 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
--- NOTE | 2025-01-12 17:59 | ECG_ITS ---
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 Measurements Intervals [place] Rate: 84 P: 11 [place]: 148 QRS: 55 QRSD: 84 T: 68 QT: 372 QTc: 441 Interpretive Statements SINUS RHYTHM possible old septal OR POSSIBLE RIGHT VENTRICULAR CONDUCTION DELAY [RSR (QR) IN V1/V2] Compared to ECG 01/12/2025 17:39:05 Sinus arrhythmia no longer present Myocardial infarct finding no longer present Electronically Signed On 01-12-2025 22:23:06 CDT by Flower Lechuga M.D. [email or web address] [id number]
[2025-01-12 18:15] VITALS: BP 178/116; PULSE 97; RESP 26; O2SAT 98
[2025-01-12] MEDS: aspirin 81 mg Chew Tablet 324 MG PO (18:16)
[2025-01-12] MEDS: nitroglycerin 0.4 mg sublingual Tablet SUBLINGUAL (18:16)
[2025-01-12 18:28] LABS: Basophils % 0.4 %; Eosinophils % 0.5 %; Hematocrit 40.1 % (36-47); Lymphocytes # 2.5 10^3/uL (0.8-4.8); Lymphocytes % 29.2 %; Mean Corpuscular HGB Conc 33.9 g/dL (30-55); Mean Corpuscular Hemoglobin 29.2 pg (27-33); Mean Corpuscular Volume 86.1 fl (85-98); Mean Platelet Volume 9.6 fL (7.4-10.4); Monocytes # 0.8 10^3/uL (0.2-0.9); Monocytes % 9.4 %; Neutrophils # 5.08 10^3/uL (1.8-7.7); Neutrophils % 60.3 %; Nucleated Red Blood Cells % 0 %; Platelet Count 277 10^3/cmm (157-399); Red Blood Count 4.66 10^6/uL (3.85-5.65); Red Cell Distribution Width 13.4 % (12.1-15.1); White Blood Count 8.42 10^3/uL (3.29-11.43)
[2025-01-12 18:30] VITALS: BP 178/116; PULSE 73; RESP 18; O2SAT 100
[2025-01-12 18:43] LABS: D Dimer 0.28 ug/mLFEU (0-0.59)
[2025-01-12 18:50] LABS: Troponin(5th) Baseline < 6 ng/L (0-10)
[2025-01-12 18:57] LABS: Alanine Aminotransferase 17 U/L (0-33); Albumin Level 4.4 g/dL (3.5-5.2); Alkaline Phosphatase 92 U/L (35-105); Aspartate Amino Transferase 25 U/L (0-32); Blood Urea Nitrogen 8 mg/dL (6-20); Carbon Dioxide 20 mmol/L (22-29); Chloride 104 mmol/L (98-107); Globulin 2.7 g/dL (1.3-4.6); Glomerular Filtration Rate 174.2 mL/min (90-130); Glucose 86 mg/dL (65-115); Lipase 13 U/L (13-60); Osmolality Calculated 286 mOsm/kg (285-295); Sodium 139 mmol/L (136-145); Total Bilirubin 0.4 mg/dL (0.15-1.2); Total Protein 7.1 g/dL (6.6-8.7)
[2025-01-12 18:59] LABS: Anion Gap 18.6 (5-19); Potassium 3.6 mmol/L (3.5-5.1)
[2025-01-12 19:06] VITALS: BP 153/97; PULSE 75; RESP 17; O2SAT 99
[2025-01-12] MEDS: labetalol 5 mg/mL SDV 20mL 10 MG IVP (19:09)
--- NOTE | 2025-01-12 19:18 | ECG_ITS ---
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 Measurements Intervals [place] Rate: 71 P: 18 PA: 128 QRS: 64 QRSD: 92 T: 65 QT: 432 QTc: 473 Interpretive Statements SINUS RHYTHM SEPTAL MYOCARDIAL INFARCTION , PROBABLY OLD [40+ ms Q WAVE IN V1/V2] Compared to ECG 01/12/2025 17:59:58 Myocardial infarct finding now present Electronically Signed On 01-12-2025 22:22:38 CDT by Flower Lechuga M.D. [id number] [id number]
[2025-01-12 20:10] LABS: Troponin 5 2HR Delta 0.00001 ABS# (0-10)
[2025-01-12 20:15] VITALS: BP 161/96; PULSE 85; RESP 14; O2SAT 100
[2025-01-12 20:54] VITALS: BP 176/99; PULSE 76; RESP 15; O2SAT 100
== END 2025-01-12 20:46 | disposition home or self-care (01) ==
PROVIDERS: Emergency Provider Emergency Medicine; PCP Family Medicine
DX: R07.9 Chest pain, unspecified (principal); I10 Essential (primary) hypertension
CPT/HCPCS: 36415; 71045; 80053; 83690; 84484; 85025; 85378; 85610; 93005; 96374; 99285; J3490; J9999